=== PATIENT | male | born 1950 | race Caucasian/White ===

== ENCOUNTER 2020-05-23 07:25 | Outpatient (REF) | payer MEDICARE, OTHER, SELFPAY ==
--- NOTE | 2020-05-23 07:34 | FL_ITS ---
PROCEDURE: FL BARIUM SWALLOW CLINICAL INFORMATION: Dysphagia. COMPARISON: None TECHNIQUE: Routine barium swallow was performed in upright view with thick barium, barium-coated turkey and barium tablet and prone lying position with thin barium. FINDINGS: Following oral administration of thick barium, barium-coated turkey and barium tablet in upright view there is normal propagation of bolus from the oral cavity through the pharynx, esophagus into stomach without any evidence of obstruction, narrowing or stricture. There is mild indentation of left lateral wall proximal esophagus likely from an aberrant right subclavian artery. Retrospectively this was visualized on the previous CT chest exam 05/25/2019. On placing patient prone and oral administration of thin barium there is no gastroesophageal reflux or hiatal hernia. 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 No obstruction, narrowing or stricture seen. No evidence of hiatal hernia or reflux.
== END 2020-05-23 07:26 | disposition home or self-care (01) ==
LOC: HO.XRAY 07:25
PROVIDERS: Visit Provider Internal Medicine
DX: R13.10 Dysphagia, unspecified (principal)
CPT/HCPCS: 74220

== ENCOUNTER 2022-05-14 08:37 | Day surgery (SDC) | payer MEDICARE, OTHER, SELFPAY ==
--- NOTE | 2022-05-13 12:18 | HO.ANESPROP2 ---
Documented by User: Lucia Stuart NP 05/13/22 12:19 HPI - Anesthesia Eval Consult details Narrative: 71yo M for Colonoscopy [facility] Past Medical History Medical History Basal cell carcinoma Hyperactivity of bladder Hyperlipidemia Squamous carcinoma Tubular adenocarcinoma Surgical History Surgical History (Updated 05/14/22 @ 09:17 by Amada Christina RN) Hx of colonoscopy Social History Social History Patient Tobacco Use Status: Never used Tobacco Are you DNR?: No Advance Directives: No Advance Directives Information Provided: Yes Nutrition Risks: No Nutritional Risk Meds Allergies Allergy/AdvReac Type Severity Reaction Status Date / Time Sulfa (Sulfonamide AdvReac Rash Verified 05/14/22 09:18 Antibiotics) Home Medications Medication Instructions Recorded Confirmed Last Taken Type CoQ-10 1 cap PO DAILY 05/13/22 05/13/22 Unknown History finasteride 5 mg tablet 1 tab PO DAILY 05/13/22 05/13/22 05/13/22 History rosuvastatin 10 mg tablet (Crestor) 10 mg PO DAILY 05/13/22 05/13/22 05/13/22 History tadalafil 5 mg tablet 1 tab PO DAILY 05/13/22 05/13/22 Unknown History vibegron 75 mg tablet (Gemtesa) 1 tab PO DAILY 05/13/22 05/13/22 05/13/22 History vitamin E 100 unit PO DAILY 05/13/22 05/13/22 Unknown History Exam Exam Date and Time: May 13, 2022 1218 Assessment and Plan Assessment Anesthesia Assessment: Chart Reviewed Documented by User: Nikolas Carey MD 05/16/22 23:31 [facility] Past Medical History Medical History Basal cell carcinoma Hyperactivity of bladder Hyperlipidemia Squamous carcinoma Tubular adenocarcinoma Functional capacity: independent ambulation Family History Family history of problems with anesthesia: No Surgical History Surgical History (Updated 05/14/22 @ 09:17 by Amada Sanford, RN) Hx of colonoscopy History of Problems with Anesthesia: No Social History Social History Patient Tobacco Use Status: Never used Tobacco Are you DNR?: No Advance Directives: No Advance Directives Information Provided: Yes Nutrition Risks: No Nutritional Risk Meds Allergies Allergy/AdvReac Type Severity Reaction Status Date / Time Sulfa (Sulfonamide AdvReac Rash Verified 05/14/22 09:18 Antibiotics) Home Medications Medication Instructions Recorded Confirmed Last Taken Type CoQ-10 1 cap PO DAILY 05/13/22 05/13/22 Unknown History finasteride 5 mg tablet 1 tab PO DAILY 05/13/22 05/13/22 05/13/22 History rosuvastatin 10 mg tablet (Crestor) 10 mg PO DAILY 05/13/22 05/13/22 05/13/22 History tadalafil 5 mg tablet 1 tab PO DAILY 05/13/22 05/13/22 Unknown History vibegron 75 mg tablet (Gemtesa) 1 tab PO DAILY 05/13/22 05/13/22 05/13/22 History vitamin E 100 unit PO DAILY 05/13/22 05/13/22 Unknown History Exam Airway Mallampati Class: III TM Dist: >3cm Neck ROM: Full Loose/Missing/Broken Teeth: Yes (Implant , crown ) Heart: S1,S2 Lungs: b/l breath sounds Assessment and Plan Assessment Anesthesia Assessment: Anesthesia Plan Discussed Final Anesthetic Review Family History of Problems with Anesthesia: No History of Problems with Anesthesia: No NPO: Yes ASA Class: II Final Preanesthetic Review: Meds/Allgs Chart Reviewed, Consent Obtained/Reviewed and Anes Risks/Benef Reviewed Patient Risk: Intermediate Procedure Risk: Intermediate Anesthetic Plan Anesthetic Plan: MAC: Disposition: Standard PACU
[2022-05-14 08:55] VITALS: BMI 23.1
[2022-05-14] MEDS: Lactated Ringers 1,000 ML 100 ML IVCONT (09:01)
[2022-05-14 09:14] VITALS: BP 144/55; PULSE 64; RESP 18; TEMP 36.4; O2SAT 99
--- NOTE | 2022-05-14 10:37 | P.BOP_ITS ---
Brief Operative Note Date of Service: 05/14/22 Pre-op diagnosis: Screening Post-op diagnosis: other (Diverticulosis) Procedure: Colonoscopy to the cecum Surgeon: Dav Reilly Anesthesia: MAC Was an Inspector Plumbing used for this Procedure?: No Estimated blood loss (mL): 0 Pathology: none sent Condition: stable Disposition: PACU
[2022-05-14 10:39] VITALS: BP 113/65; PULSE 60; RESP 15; TEMP 36.3; O2SAT 98
[2022-05-14 10:54] VITALS: BP 118/59; PULSE 59; RESP 14; TEMP 36.7; O2SAT 99
--- NOTE | 2022-05-15 06:28 | OP_ITS ---
SURGEON: Dav Reilly MD INDICATIONS: The patient presents for evaluation of colorectal cancer screening. Full consent has been obtained from him for this, including risks of bleeding and perforation. PREOPERATIVE DIAGNOSIS: Colorectal cancer screening. POSTOPERATIVE DIAGNOSIS: PROCEDURE PERFORMED: Colonoscopy to the cecum. ESTIMATED BLOOD LOSS: COMPLICATIONS: ANESTHESIA: Monitored anesthesia care. ASSISTANTS: SPECIMENS: POSTOPERATIVE DIAGNOSES: Colorectal cancer screening, diverticulosis, and internal hemorrhoids DESCRIPTION OF PROCEDURE: The patient was placed in the left lateral decubitus position. The digital rectal exam revealed no abnormalities. The Olympus video pediatric colonoscope was entered into the rectum and advanced easily to the cecum. Once in the cecum, I did identify normal-appearing cecal pouch with appendiceal orifice and a normal-appearing ileocecal valve. There was transillumination of light deep in the right lower quadrant. The scope was slowly withdrawn assessing all mucosal surfaces carefully. Preparation was excellent. I did not visualize any sign of polyps, colitis, nor angiodysplasia. There was a moderate amount of sigmoid diverticulosis. In the rectum, scope was retroflexed visualizing internal hemorrhoids, but no other pathology. The rectal mucosa appeared normal. The scope was straightened and withdrawn from the patient. He tolerated the procedure well and was returned to the recovery area in stable condition. IMPRESSION: 1. Diverticulosis. 2. Internal hemorrhoids. PLAN: Given today's negative exam and 2 previously negative colonoscopies, as well as no family history of colon cancer, I do not think he would need any further screening colonoscopies. He will see me on a p.r.n. basis. This has been discussed with his . MD MEEK Krishna/JOHN / [id number] MTDD
== END 2022-05-14 11:35 | disposition home or self-care (01) ==
PROVIDERS: PCP Internal Medicine; Visit Provider Internal Medicine
PROC: 0DJD8ZZ Inspection of Lower Intestinal Tract, Via Natural or Artificial Opening Endoscopic (ICD-10-PCS; CPT 45378; principal; 2022-05-14 09:30)
DX: Z12.11 Encounter for screening for malignant neoplasm of colon (principal); Z86.010 Personal history of colon polyps; K57.30 Diverticulosis of large intestine without perforation or abscess without bleeding; K64.8 Other hemorrhoids; E78.5 Hyperlipidemia, unspecified; N32.81 Overactive bladder; Z79.899 Other long term (current) drug therapy; Z88.2 Allergy status to sulfonamides; Z85.828 Personal history of other malignant neoplasm of skin
CPT/HCPCS: 45378

== ENCOUNTER 2024-06-06 21:14 | Emergency (ER) | payer MEDICARE, OTHER, SELFPAY ==
--- NOTE | 2024-06-06 | ECG_ITS ---
Test Reason : ARRYTHMIA Blood Pressure : / mmHG Vent. Rate : 060 BPM Atrial Rate : 060 BPM P-R Int : 212 ms QRS Dur : 094 ms QT Int : 410 ms P-R-T Axes : 072 064 043 degrees QTc Int : 410 ms Sinus rhythm with sinus arrhythmia with 1st degree A-V block Otherwise normal ECG No previous ECGs available Referred By: Generic ED Physician Electronically Signed By:FRANCESCA SPENCER MD
--- NOTE | 2024-06-06 21:17 | PC.NURSE ---
gis administrator received expect from RIYA Kemi Campoverde from [facility] reporting that the pt has been recommended to come in for further evaluation. Pt has been wearing a holter monitor [id number] and today at 1558 he had an episode of 15 beats of VTach with underlying Sinus Tach. Per RIYA pt was asymptomatic
[2024-06-06 21:33] VITALS: BP 126/71; PULSE 66; RESP 16; TEMP 37.1; O2SAT 99; BMI 23.0
--- NOTE | 2024-06-06 22:29 | PC.NURSE ---
Pt a&ox3, no signs of distress. Pt denies pain, n/v, dizziness, and sob. Pt reports he was wearing a holter monitor and was called by the co monitoring it and told to come to the ED and be evaluated. EKG complete. Plan of care ongoing.
[2024-06-07] VITALS: BP 132/73; PULSE 51; RESP 14; TEMP 36.4; O2SAT 96
--- NOTE | 2024-06-07 00:23 | PC.NURSE ---
Pt ambulates to the restroom with a steady gait. Pt requested and given a warm blanket Plan of care ongoing.
--- NOTE | 2024-06-07 01:14 | ED.ARRPALP ---
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 Omid Handley HPI narrative: 73-year-old male with history of hyperlipidemia who was referred to the emergency department for evaluation for an asymptomatic 15 beat run of V-tach noted on a Holter monitor that the patient has been wearing as part of a stroke workup. Patient was contacted by his primary care office's physician human resources assistant manager and advised to go to the emergency department for this Holter monitor finding. The event was noted at 16:00 hours. The patient states that he was completely asymptomatic. The patient states that approximately 1-2 weeks ago, while he was watching television, he developed blurry vision in both eyes that lasted approximately 30 minutes and then resolved. He states that 6 months ago while he was bowling with his and his grandchild he developed a period of confusion that lasted approximately 1 hour. Patient's states that the patient kept repeating the same question over which was not usual for him. Because of these 2 events he is being worked up for stroke and has been wearing a Holter monitor for arrhythmia detection. He states that he is scheduled for an echocardiogram. He chest pain at rest or exertion, shortness of breath, dyspnea on exertion, lightheadedness or dizziness. He states that he was able to break the leaves in his yd without any difficulty. He states that 2 weeks ago he did have a cold with cough, sinus congestion and low-grade fever but these symptoms resolved. Related Data Home Medications ?Medication ?Instructions ?Recorded ?Confirmed CoQ-10 1 cap PO DAILY 05/13/22 05/13/22 finasteride 5 mg tablet 1 tab PO DAILY 05/13/22 05/13/22 rosuvastatin 10 mg tablet (Crestor) 10 mg PO DAILY 05/13/22 05/13/22 tadalafil 5 mg tablet 1 tab PO DAILY 05/13/22 05/13/22 vibegron 75 mg tablet (Gemtesa) 1 tab PO DAILY 05/13/22 05/13/22 vitamin E 100 unit PO DAILY 05/13/22 05/13/22 Allergies Allergy/AdvReac Type Severity Reaction Status Date / Time Sulfa (Sulfonamide AdvReac Rash Verified 06/06/24 21:38 Antibiotics) [facility] Past Medical History [facility] Narrative: Social history: He is . his , and is here in the emergency department with the patient. The patient denies tobacco use. He states that he rarely drinks alcohol. He denies drug use. Medical History (Updated 06/07/24 @ 01:44 by Omid Handley MD) Squamous carcinoma Basal cell carcinoma Hyperactivity of bladder Tubular adenocarcinoma Hyperlipidemia Surgical History (Updated 05/14/22 @ 09:17 by Amada Christina RN) Hx of colonoscopy Social History Social History Patient Tobacco Use Status: Never used Tobacco Smoked in Last 30 Days: No Use of substances other than those prescribed or required for medical reasons: No Advance Directives: No Advance Directives Information Provided: Yes Do you have a plan to hurt others: No Plan Physical Exam Vital Signs: Vital Signs: Last Vital Signs Temp 97.8 F 06/07/24 02:24 Pulse 58 06/07/24 02:24 Resp 15 06/07/24 02:24 BP 135/72 06/07/24 02:24 Pulse Ox 95 06/07/24 02:24 O2 Del Method Room Air 06/07/24 02:24 BMI result Body Mass Index 23.0 Vital signs revealed a low heart rate of 58 and elevated blood pressure of 135/72 otherwise unremarkable Exam: General: Awake, alert in no distress Head: Normocephalic, atraumatic EENT: PERRL, Lids normal, sclera normal, conjunctiva normal, nose normal , ears normal, throat without erythema or exudates Neck: Supple, no adenopathy Lung: breath sounds symmetric, no wheezing, rales or rhonchi Chest: symmetric movement, nontender Heart: regular rate and rhythm, normal S1, S2 no murmurs or rubs Abdomen: soft, non-tender, nondistended, normal bowel sounds Back: no vertebral tenderness, no CVAT Extremities: no deformities, moves all extremities symmetrically Neuro: Awake, alert, oriented, normal speech, cranial nerves intact, moves all extremities symmetrically Psych: Pleasant, cooperative Medical Decision Making Medical Decision Making [facility] Narrative: 73-year-old male with history of hyperlipidemia who was referred to the emergency department for evaluation for an asymptomatic, 15 beat run of V-tach noted on a Holter monitor did the patient has been wearing as part of a stroke workup. the patient had a brief episode vision change 1-2 weeks prior and an episode of confusion 6 months prior while he was bowling-this event is consistent with transient global amnesia based on the 's description. The patient has not had a concerning symptoms such as lightheadedness, dizziness, chest pain at rest or with exertion, shortness of breath at rest or dyspnea on exertion. Patient has been able to do physical activities such is working his lawn without any limitations Differential diagnosis: Includes but is not limited to coronary artery disease, coronary ischemia, arrhythmia Course: the patient had an asymptomatic run of V-tach noted on his Holter monitor. patient's 12 EKG did reveal a first-degree AV block and sinus arrhythmia but otherwise was unremarkable. The patient has had no significant prodrome will symptoms to suggest that he has significant coronary artery artery disease or cardiac ischemia. patient is wearing the Holter monitor not for lightheadedness or dizziness but to divide to detect paroxysmal atrial tachycardia as a possible risk factor for stroke. 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 I did discuss this with the patient and the patient's . At this time I do not think that he needs any further testing in the emergency department and he can be discharged home. Admission/Observation Consideration of admission/observation: Escalation of care including admission/observation considered ( No) Independent Interpretation I performed an independent interpretation of an: EKG Interpretation: My independent interpretation patient's 12 EKG done at 22:25 hours is as follows: Sinus rhythm with sinus arrhythmia and first-degree AV block with a rate of 60, SC interval elevated 212 milliseconds. QRS duration and QTC intervals are normal, no ST segment elevation, no ST segment depression, no significant T-wave abnormalities, no PACs, no PVCs Independent Historian Clinical information obtained from an independent historian. History obtained from or confirmed by: Spouse Chronic Conditions Patient?s care impacted by: Other ( hyperlipidemia) Discharge Plan Discharge Clinical Impression: Ventricular tachycardia Patient Disposition: Home, Self-Care Additional Instructions: Your EKG was unremarkable. You were the patient's on our strike off machine operator for 3-1/2 hours and during this time you did not have any further runs of ventricular tachycardia. According to your physician human resources assistant manager, at 16:00 you had a 15 beat run of ventricular tachycardia and you did not have any symptoms such as lightheadedness, dizziness, shortness of breath, passing out which is reassuring. We do not treat asymptomatic ventricular tachycardia however if you continue to have frequent episodes of ventricular tachycardia on the Holter monitor in you have symptoms with him then sometimes be put patient's eye medications. The main reason why you have the Holter monitor is to try to detect atrial fibrillation which can be a risk factor for stroke. The event that you had 8 months ago while you were bowling sounds like transient global amnesia which is often not caused by stroke. The change in vision that you had while you were watching TV does not sound like an embolic stroke Your recent MRI did not reveal any strokes which is reassuring as well. Make sure you get the echocardiogram as scheduled. Follow-up with your doctor in 2 days. Please return to the emergency department if your symptoms get worse or if you develop any symptoms that are concerning to you. For ongoing antibiotic Prescriptions: No Action finasteride 5 mg tablet 1 tab PO DAILY rosuvastatin [Crestor] 10 mg Tablet 10 mg PO DAILY tadalafil 5 mg tablet 1 tab PO DAILY Gemtesa 75 mg tablet 1 tab PO DAILY CoQ-10 1 cap PO DAILY vitamin E 100 unit PO DAILY Interventions: ED Discharge Assessment Last Done: 06/07/24 02:24 Discharge Date/Time: 06/07/24 02:28 Print Language: Estonian
[2024-06-07 01:52] VITALS: BP 135/72; PULSE 58; RESP 15; TEMP 36.6; O2SAT 95
[2024-06-07 02:24] VITALS: BP 135/72; PULSE 58; RESP 15; TEMP 36.6; O2SAT 95
== END 2024-06-07 02:28 | disposition home or self-care (01) ==
PROVIDERS: Emergency Provider Emergency Medicine Emergency Medical Services; PCP Internal Medicine
DX: I47.20 Ventricular tachycardia, unspecified (principal)
CPT/HCPCS: 93005; 99283; 99285

== ENCOUNTER → 2024-06-06 22:25 | Outpatient (BNV) | payer MEDICARE, OTHER, SELFPAY | PROVIDERS: Emergency Provider Emergency Medicine Emergency Medical Services; PCP Internal Medicine; Visit Provider Internal Medicine Cardiovascular Disease | DX: I49.9 Cardiac arrhythmia, unspecified (principal) | CPT/HCPCS: 93010 ==